=== PATIENT | female | born 1950 | race Two or more races ===

== ENCOUNTER 2024-05-11 10:36 | Emergency (ER) | payer OTHER ==
[~2024-05-11] VITALS: Ht 144.8 cm; Wt 90.0 kg
--- NOTE | 2024-05-11 10:56 | ECG ---
[facility] Test Date: 2024-05-11 Test Time: 10:55:26 Pat Name: CHARLETTE PRETTY Department: ER Room: Gender: F Fleece Tier: FLORIAN : 1950 Requested By: NOEMI KERR Order Number: [id number] Reading MD: Measurements Intervals [place] Rate: 72 P: 40 TN: 209 QRS: 268 QRSD: 92 T: 32 QT: 496 QTc: 543 Interpretive Statements Sinus rhythm Left anterior fascicular block Low voltage, precordial leads Abnormal R-wave progression, late transition Borderline T abnormalities, anterior leads Prolonged QT interval Please click the below link to view image of tracing.
--- NOTE | 2024-05-11 10:57 | ED.PDOC ---
History of Present Illness HPI Comments 73Y F with PMHx DM and CVA (2014) presents to ED for chief complaint dizziness. Additional symptoms include blurred vision, headache, neck pain, and nausea. Pt has been experiencing the symptoms for a few days but today they became worse. Per pt, BS was 348 last night. Pt states she is experiencing the same symptoms as last CVA. Chief Complaint: Dizziness Time Seen by MD: 10:47 Reviewed Notes: Medications, Allergies Information Source: Patient Mode of Arrival: Wheelchair Severity: Moderate Timing: Days Duration: Since onset Past Medical History PAST MEDICAL HISTORY: CVA, DM Surgical History: Denies all surgeries UNDERCOLLAR MAKER History: Denies all UNDERCOLLAR MAKER Hx Family History Family History: Unknown Social History Smoker: Non-Smoker Alcohol: Denies ETOH Use Drugs: Denies Drug Use Lives In: Home Constitutional: denies: chills, diaphoresis, fatigue, fever, malaise, sweats, weakness, others EENTM: reports: blurred vision; denies: double vision, ear bleeding, ear discharge, ear drainage, ear pain, ear ringing, eye pain, eye redness, hearing loss, mouth pain, mouth swelling, nasal discharge, nose bleeding, nose congestion, nose pain, photophobia, tearing, throat pain, throat swelling, voice changes, others Respiratory: denies: cough, hemoptysis, orthopnea, SOB at rest, shortness of breath, SOB with excertion, stridor, wheezing, others Cardiovascular: denies: chest pain, dizzy spells, diaphoresis, Dyspnea on exertion, edema, irregular heart beat, left arm pain, lightheadedness, palpitations, PND, syncope, others Gastrointestinal: reports: nausea; denies: abdomen distended, abdominal pain, blood streaked bowels, constipated, diarrhea, dysphagia, difficulty swallowing, hematemesis, melena, poor appetite, poor fluid intake, rectal bleeding, rectal pain, vomiting, others Genitourinary: denies: abnormal vagina bleeding, burning, dyspareunia, dysuria, flank pain, frequency, hematuria, incontinence, pain, , vagina discharge, urgency, others Neurological: reports: dizziness, headache; denies: fainting, left sided numbness, left sided weakness, numbness, paresthesia, pre-existing deficit, right sided numbness, right sided weakness, seizure, speech problems, tingling, tremors, weakness, others Musculoskeletal: reports: neck pain; denies: back pain, gout, joint pain, joint swelling, muscle pain, muscle stiffness, others Integumetry: denies: bruises, change in color, change in hair/nails, dryness, laceration, lesions, lumps, rash, wounds, others Allergic/Immunocompromised: denies: Difficulty Healing, Frequent Infections, H robbin, Itching, others Hematologic/Lymphatic: denies: anemia, blood clots, easy bleeding, easy bruising, swollen glands, others Endocrine: denies: excessive hunger, excessive sweating, excessive thirst, excessive urination, flushing, intolerance to cold, intolerance to heat, unexplained weight gain, unexplained weight loss, others Psychiatric: denies: anxiety, bipolar disorder, depression, hopeless, panic disorder, schizophrenia, sleepless, suicidal, others All Other Systems: Reviewed and Negative Physical Exam General Appearance: No Apparent Distress, Normal HEENT: Pharynx Normal, TMs Normal Neck: Full Range of Motion, Non-Tender, Normal, Normal Inspection Respiratory: Chest Non-Tender, Lungs Clear, No Accessory Muscle Use, No Respiratory Distress, Normal Breath Sounds Cardiovascular: No Edema, No JVD, No Murmur, No Gallop, Normal Peripheral Pulses, Regular Rate/Rhythm Breast Exam: Deferred Gastrointestinal: No Organomegaly, Non Tender, No Pulsatile Mass, Normal Bowel Sounds, Soft Genitalia: Deferred Pelvic: Deferred Rectal: Deferred Extremities: No calf tenderness, Normal capillary refill, Normal inspection, Normal range of motion, Non-tender, No pedal edema Musculoskeletal : Apperance: Normal Neurologic: Alert, Normal Mood, Other (tracking of eyes causes vertigo) Cerebellar Function: Normal Reflexes: Normal Skin: Dry, Normal Color, Warm Lymphatic: No Adenopathy Was a procedure done? Was a procedure done?: No EKG EKG : Pulse Rate (adult): 72 Cardiac Rhythm: NSR Comments flat t waves bilaterally Differential Dx Considerations may include: cerebellar infarct, miter saw operator malignancy, bpv, intracranial bleed. htn emergency, hypoglycemia, acs X-Ray, Labs, Meds, VS Vital Signs Date Time Temp Pulse Resp B/P (MAP) Pulse Ox O2 Delivery O2 Flow Rate FiO2 05/11/24 13:39 98.4 62 16 108/57 (74) 90 98.4 05/11/24 11:19 70 16 93 Room Air* 0 21 05/11/24 11:19 98.6 70 16 141/70 (93) 93 98.6 05/11/24 11:00 72 05/11/24 10:55 72 05/11/24 10:53 97.9 76 18 139/57 (84) 94 Lab Test 05/11/24 11:55 05/11/24 10:50 05/11/24 10:47 Range/Units Troponin I High Sensitivity 3 L 3 L </=34 ng/L White Blood Count 6.0 4.4-10.8 10^3/uL Red Blood Count 4.46 4.0-5.20 10^6/uL Hemoglobin 14.8 12.2-16.2 g/dL Hematocrit 42.3 36.0-46.0 % Mean Corpuscular Volume 94.8 80.0-100.0 fL Mean Corpuscular Hemoglobin 33.2 H 28.0-32.0 pg Mean Corpuscular Hemoglobin Concent 35.0 32.0-36.0 g/dL Red Cell Distribution Width 13.3 11.8-14.3 % Platelet Count 299 140-450 10^3/uL Mean Platelet Volume 9.1 6.9-10.8 fL Neutrophils (%) (Auto) 53.5 37.0-80.0 % Lymphocytes (%) (Auto) 35.7 10.0-50.0 % Monocytes (%) (Auto) 9.0 0.0-12.0 % Eosinophils (%) (Auto) 1.1 0.0-7.0 % Basophils (%) (Auto) 0.7 0.0-2.0 % Neutrophils # (Auto) 3.2 1.6-8.6 10 ^3/uL Lymphocytes # (Auto) 2.1 0.4-5.4 10 ^3/uL Monocytes # (Auto) 0.5 0-1.3 10 ^3/uL Eosinophils # (Auto) 0.1 0-0.8 10 ^3/uL Basophils # (Auto) 0 0-0.2 10 ^3/uL Nucleated Red Blood Cells 0.1 % Sodium Level 139 136-145 mmol/L Potassium Level 3.9 3.5-5.1 mmol/L Chloride Level 103 98-107 mmol/L Carbon Dioxide Level 29 20-31 mmol/L Anion Gap 7 5-15 Blood Urea Nitrogen 8 L 9-23 mg/dL Creatinine 0.87 0.550-1.02 mg/dL Glomerular Filtration Rate Calc 71 >90 mL/min BUN/Creatinine Ratio 9.2 L 10.0-20.0 Serum Glucose 223 H 74-106 mg/dL Calcium Level 10.1 8.7-10.4 mg/dL POC Glucose 214 H 70-106 mg/dl Current Medications Medications (Trade) Dose Ordered Sig/Omar Route Start Time Stop Time Status Last Admin Meclizine HCl (Antivert Tablet) 25 mg ONCE ONCE PO 05/11/24 11:00 05/11/24 11:01 DC 05/11/24 11:29 Alprazolam (Xanax Tablet) 0.25 mg ONCE ONCE PO 05/11/24 11:00 05/11/24 11:01 DC 05/11/24 11:29 Ondansetron HCl (Zofran Po) 4 mg ONCE ONCE PO 05/11/24 11:00 05/11/24 11:01 DC 05/11/24 11:30 Acetaminophen/ Hydrocodone Bitart ([place] 5/325MG Tab) 1 tab ONCE ONCE PO 05/11/24 13:30 05/11/24 13:31 DC 05/11/24 13:40 [place] [address] Ph: [phone] DIAGNOSTIC IMAGING Diagnostic Imaging Report : [id number] Signed PATIENT: CHARLETTE PRETTY ACCT: [id number] UNIT: [id number] : 1950 LOC: ER ROOM / BED: / AGE / SEX: 73 / F ADM STATUS: REG ER SERVICE [id number] ORDERING PHYSICIAN: NOEMI KERR MD PROCEDURE(s): CXRP - CHEST PORTABLE REASON: dizziness ORDER NUMBER(s): [id number], ACCESSION NUMBER(s): [id number] CHEST RADIOGRAPH Indication:dizziness Technique: Single frontal view of the chest was obtained COMPARISON: None FINDINGS: Lines and Tubes: None Lungs: Clear Pleura: No effusion. No pneumothorax. Cardiomediastinal contours: Unremarkable Bones: Unremarkable IMPRESSION: No acute disease. ATED BY: JOEL PAGE MD DICTATED DATE/TIME: 05/11/241127 SIGNED BY: JOEL PAGE MD SIGNED DATE/TIME: 05/11/241127 CC: [place] [address] Ph: [phone] DIAGNOSTIC IMAGING Diagnostic Imaging Report : [id number] Signed PATIENT: CHARLETTE PRETTY ACCT: [id number] UNIT: [id number] : 1950 LOC: ER ROOM / BED: / AGE / SEX: 73 / F ADM STATUS: REG ER SERVICE 104 ORDERING PHYSICIAN: NOEMI KERR MD PROCEDURE(s): HWOCT - HEAD WITHOUT CONTRAST REASON: vertigo ORDER NUMBER(s): [id number], ACCESSION NUMBER(s): [id number] EXAM: CT HEAD WITHOUT CONTRAST INDICATION: vertigo TECHNIQUE: CT of the head without intravenous contrast. Coronal and sagittal reformatted images are submitted. Radiation Dose : 1. Head: CT Dose: CTDI volume is 53.81 mGy. Dose-length product is 972.12 mGy*cm The dose indicators for CT are the volume Computed Tomography (CT) Dose Index (CTDIvol) and the Dose Length Product (DLP), and are measured in units of mGy and mGy-cm, respectively. These indicators are not patient dose, but values generated from the CT scanner acquisition factors. The report includes radiation exposure data for exposures received during this examination. All CT scans at this medical facility are performed using dose modulation techniques as appropriate to a performed exam including the following: Automated exposure control was utilized; adjustment of the MA and/or KV according to patient size; and use of iterative reconstruction technique. COMPARISON: None FINDINGS: There is no evidence of acute intracranial hemorrhage, extra-axial collection, mass effect, midline shift, herniation or hydrocephalus. Encephalomalacia in the right parietal lobe. The ventricles, sulci and cisterns are age appropriate. The merritt-white differentiation is intact. The visualized paranasal sinuses and mastoid air cells are clear. No depressed calvarial fracture. The surrounding soft tissues are unremarkable. IMPRESSION: 1. No evidence of acute intracranial abnormality. ATED BY: DONNY ROYAL MD DICTATED DATE/TIME: 05/11/24 1129 SIGNED BY: DONNY ROYAL MD SIGNED DATE/TIME: 05/11/24 1129 CC: Time of 1ST Reevaluation: 11:17 Reevaluation 1ST: Unchanged Time of 2ND Reevaluation: 13:59 Reevaluation 2ND: Improved Time of 3RD Reevaluation: 13:59 Reevaluation 3RD: Resolved Patient Education/Counseling: Diagnosis, Treatment, Prognosis, Need For Follow Up Family Education/Counseling: Diagnosis, Treatment, Prognosis, Need For Follow Up, No Family Present Additional Information pt has vertigo, which is resolved with medication. she is not ataxic. she also has a headache, and the head ct is unremarkable. a cerebellar process causing headache and vertigo was considered, which may require a transfer. however, she is asymptomatic and her head ct is negative. she is stable for discharge Departure 1 Departure Time of Disposition: 14:47 Impression: Primary Impression: Cephalalgia Qualified Codes: R51.9 - Headache, unspecified Additional Impression: BPV (benign positional vertigo) Qualified Codes: H81.10 - Benign paroxysmal vertigo, unspecified ear Disposition: HOME / SELF CARE / HOMELESS Condition: Good e-Prescriptions Hydrocodone-Acetaminophen (Hydrocodone Bitartrate/AC 5-325 mg) 1 Tab Tab 1 TAB PO DAILY PRN for 5 Days, #5 TAB Prov: NOEMI KERR MD 05/11/24 Alprazolam (Xanax) 0.25 Mg Tb 1 TAB PO BID PRN for 5 Days, #10 TAB Prov: NOEMI KERR MD 05/11/24 Ondansetron Odt 4MG Tab (ZOFRAN PO) 4 Mg Tb 4 MG PO Q4HP PRN for 5 Days, #25 TAB ODT TAB-DISSOLVE IN MOUTH, THEN SWALLOW Prov: NOEMI KERR MD 05/11/24 Meclizine HCl (Meclizine 25) 25 Mg Tab 25 MG PO Q4HP PRN for 5 Days, #25 TAB Prov: NOEMI KERR MD 05/11/24 Discharged With: Self, Relative Critical Care Note Critical Care Time?: Yes (55 min-critical care time only) Critical care comment: due to real concerns for pt's condition deteriorating, the patient's care required my highest level of attention and prepareness to intervene. i assessed this patient, formulated a plan of care, communicated with medical personnel,reveiwed data and results,and conversed with professional benefits sales consultant, reassessed the patient's condition and response to treatments. total time include at least 50% face-face interactions and does not include any procedures Stability Stability form required: No I personally scribed for NOEMI KERR MD ([facility]) on 05/11/24 at 10:57. Electronically submitted by Kaylee Holbrook ([employer]). I personally scribed for NOEMI KERR MD ([facility]) on 05/11/24 at 11:00. Electronically submitted by Kaylee Holbrook ([employer]). I personally scribed for NOEMI KERR MD ([email or web address]) on 05/11/24 at 11:41. Electronically submitted by Kaylee Holbrook ([employer]). NOEMI KERR MD May 11, 2024 10:57
[2024-05-11 11:19] VITALS: PULSE 70; RESP 16; O2SAT 93
[2024-05-11 11:25] LABS: Basophils # (auto) 0 10 ^3/uL (0-0.2); Basophils % (auto) 0.7 % (0.0-2.0); Eosinophils # (auto) 0.1 10 ^3/uL (0-0.8); Eosinophils % (auto) 1.1 % (0.0-7.0); Hematocrit 42.3 % (36.0-46.0); Hemoglobin 14.8 g/dL (12.2-16.2); Lymphocytes # (auto) 2.1 10 ^3/uL (0.4-5.4); Lymphocytes % (auto) 35.7 % (10.0-50.0); Mean Corpuscular Hemoglobin 33.2 pg (28.0-32.0); Mean Corpuscular Volume 94.8 fL (80.0-100.0); Monocytes # (auto) 0.5 10 ^3/uL (0-1.3); Neutrophils # (auto) 3.2 10 ^3/uL (1.6-8.6); Neutrophils % (auto) 53.5 % (37.0-80.0); Nucleated Red Blood Cells % 0.1 %; Platelet Count (auto) 299 10^3/uL (140-450); Red Blood Cells 4.46 10^6/uL (4.0-5.20); Red Cell Distribution Width 13.3 % (11.8-14.3)
[2024-05-11] MEDS: ALPRAZolam 0.25 MG TAB PO ONE (11:29)
[2024-05-11] MEDS: MECLIZINE HCL 25 MG TAB PO ONE (11:29)
[2024-05-11] MEDS: ONDANSETRON ODT 4 MG TAB PO ONE (11:30)
--- NOTE | 2024-05-11 11:32 | DVH ---
EXAM: CT HEAD WITHOUT CONTRAST INDICATION: vertigo TECHNIQUE: CT of the head without intravenous contrast. Coronal and sagittal reformatted images are submitted. Radiation Dose : 1. Head: CT Dose: CTDI volume is 53.81 mGy. Dose-length product is 972.12 mGy*cm The dose indicators for CT are the volume Computed Tomography (CT) Dose Index (CTDIvol) and the Dose Length Product (DLP), and are measured in units of mGy and mGy-cm, respectively. These indicators are not patient dose, but values generated from the CT scanner acquisition factors. The report includes radiation exposure data for exposures received during this examination. All CT scans at this medical facility are performed using dose modulation techniques as appropriate to a performed exam including the following: Automated exposure control was utilized; adjustment of the MA and/or KV according to patient size; and use of iterative reconstruction technique. COMPARISON: None FINDINGS: There is no evidence of acute intracranial hemorrhage, extra-axial collection, mass effect, midline s hift, herniation or hydrocephalus. Encephalomalacia in the right parietal lobe. The ventricles, sulci and cisterns are age appropriate. The merritt-white differentiation is intact. The visualized paranasal sinuses and mastoid air cells are clear. No depressed calvarial fracture. The surrounding soft tissues are unremarkable. IMPRESSION: 1. No evidence of acute intracranial abnormality.
--- NOTE | 2024-05-11 11:32 | DVH ---
CHEST RADIOGRAPH Indication:dizziness Technique: Single frontal view of the chest was obtained COMPARISON: None FINDINGS: Lines and Tubes: None Lungs: Clear Pleura: No effusion. No pneumothorax. Cardiomediastinal contours: Unremarkable Bones: Unremarkable IMPRESSION: No acute disease.
[2024-05-11 11:48] LABS: Chloride 103 mmol/L (98-107); Potassium 3.9 mmol/L (3.5-5.1); Sodium 139 mmol/L (136-145)
[2024-05-11 11:49] LABS: Anion Gap 7 (5-15); Carbon Dioxide 29 mmol/L (20-31)
[2024-05-11 11:50] LABS: Calcium 10.1 mg/dL (8.7-10.4)
[2024-05-11 11:54] LABS: BUN/Creatinine Ratio 9.2 (10.0-20.0); Blood Urea Nitrogen 8 mg/dL (9-23); Glucose 223 mg/dL (74-106)
[2024-05-11 13:39] VITALS: TEMP 98.4
[2024-05-11] MEDS: HYDROcodone-ACET 5/325MG TAB PO ONE (13:40)
[2024-05-11] MEDS ORDERED: ALPR0.25 PO (14:45)
[2024-05-11] MEDS ORDERED: MECL1TAB42 PO (14:45)
[2024-05-11] MEDS ORDERED: HYDR-4902 PO (14:45)
[2024-05-11] MEDS ORDERED: ZOFR4T PO (14:45)
[2024-05-11 15:25] VITALS: BP 106/56; PULSE 58; RESP 18; O2SAT 92
== END 2024-05-11 15:28 | disposition home or self-care (01) ==
LOC: ER 10:36
DX: R51.9 Headache, unspecified (principal); H81.10 Benign paroxysmal vertigo, unspecified ear; E11.9 Type 2 diabetes mellitus without complications; Z86.73 Personal history of transient ischemic attack (TIA), and cerebral infarction without residual deficits
CPT/HCPCS: 36415; 70450; 71045; 80048; 82962; 84484; 85025; 93005; 99285; J8597; Q0162